=== PATIENT | male | born 1995 | race African-American/Black ===

== ENCOUNTER 2017-02-03 11:25 | Emergency (ER) | payer MEDICAID ==
[~2017-02-03] VITALS: Ht 177.8 cm; Wt 70.0 kg
[2017-02-03 11:33] VITALS: BP 132/67
[2017-02-03] MEDS ORDERED: IBUPROFEN 800MG TABLET PO ONE (13:00)
[2017-02-03] MEDS ORDERED: LORAZEPAM 0.5MG TABLET PO ONE (13:00)
== END 2017-02-03 15:40 | disposition home or self-care (01) ==
LOC: ER 11:31
DX: S16.1XXA Strain of muscle, fascia and tendon at neck level, initial encounter (principal); S63.502A Unspecified sprain of left wrist, initial encounter; V43.52XA Car driver injured in collision with other type car in traffic accident, initial encounter; Y93.89 Activity, other specified; Y92.488 Other paved roadways as the place of occurrence of the external cause; Y99.8 Other external cause status
CPT/HCPCS: 29125; 72040; 73110; 73130; 99284